=== PATIENT | female | born 1975 | race Two or more races ===

== ENCOUNTER 2019-05-05 09:17 | Outpatient (CLI) | payer OTHER | END 2019-05-05 09:43 | disposition home or self-care (01) | LOC: NUCLEAR 09:17 | DX: K80.20 Calculus of gallbladder without cholecystitis without obstruction (principal) | CPT/HCPCS: 78227; A9537 ==

== ENCOUNTER 2021-04-04 05:55 | Day surgery (SDC) | payer OTHER ==
[~2021-04-04 05:55] MED LIST: PEPCID AC10 MG; ZYRTEC10 M3
[2021-04-04] MEDS ORDERED: MORGIDOX100 MG PO (09:12)
[2021-04-04] MEDS ORDERED: NAPR500T14 PO (09:12)
== END 2021-04-04 15:20 | disposition home or self-care (01) ==
LOC: CIR.AMB 05:55
PROVIDERS: ATTEND Obstetrics & Gynecology
DX: D25.0 Submucous leiomyoma of uterus (principal); N84.0 Polyp of corpus uteri; Z20.822 Contact with and (suspected) exposure to COVID-19